=== PATIENT | female | born 1965 | race Caucasian/White ===

== ENCOUNTER 2018-07-26 07:46 | Day surgery (SDC) | payer OTHER ==
[~2018-07-26] VITALS: Ht 162.6 cm; Wt 70.4 kg
[~2018-07-26 07:46] MED LIST: ALBU90OI61 INH; B-122500 MCG SL; BENZ100A PO; BIOTIN5000 MC1 SL; Cheratussin AC118 ML PO; FLUO10 PO; IBUP800 PO; L-LYSINE500 MG PO; MULTI-VITAMIN-1 EACH PO; Nortriptyline H50 MG PO; Omega-31000 MG PO; Omeprazole20 M1 PO; QVAR REDIHALE10.6 G1 INH; Super B Comple1 EAC2 PO; VITAMIN D35000 UNIT PO; ZOLP10 PO
--- NOTE | 2018-07-26 08:46 | NUR ---
07/26/18 0846 Gerhard Cardoza TWO IV ATTEMPTS ON RIGHT ARM, BOTH UNSUCCESSFUL. THRID IV ATTEMPT ON LEFT HAND, SUCCESSFUL BY EDEN.
== END 2018-07-26 10:35 | disposition home or self-care (01) ==
LOC: ORSCSDS 07:46
PROVIDERS: Internal Medicine Gastroenterology
PROC: 0DB68ZX Excision of Stomach, Via Natural or Artificial Opening Endoscopic, Diagnostic (ICD-10-PCS; principal; 2018-07-26 09:30)
PROC: 0DB58ZX Excision of Esophagus, Via Natural or Artificial Opening Endoscopic, Diagnostic (ICD-10-PCS; principal; 2018-07-26 09:30)
PROC: 0D758ZZ Dilation of Esophagus, Via Natural or Artificial Opening Endoscopic (ICD-10-PCS; principal; 2018-07-26 09:30)
DX: R13.10 Dysphagia, unspecified (principal); K31.7 Polyp of stomach and duodenum; F41.9 Anxiety disorder, unspecified; E78.1 Pure hyperglyceridemia; Z79.899 Other long term (current) drug therapy
CPT/HCPCS: 88305; 88342; J0330; J1980; J2405; J7120

== ENCOUNTER 2021-01-01 23:10 | Emergency (ER) | payer OTHER ==
[~2021-01-01] VITALS: Ht 162.6 cm; Wt 63.5 kg
== END 2021-01-02 00:45 | disposition home or self-care (01) ==
LOC: ER 23:10
DX: B34.9 Viral infection, unspecified (principal); Z88.1 Allergy status to other antibiotic agents; Z88.5 Allergy status to narcotic agent; Z79.899 Other long term (current) drug therapy; Z20.822 Contact with and (suspected) exposure to COVID-19
CPT/HCPCS: 71046; 99283-25

== ENCOUNTER → 2025-05-23 | Outpatient (CLI) | payer OTHER | LOC: LAB 09:40 | DX: N39.0 Urinary tract infection, site not specified (principal) ==

== ENCOUNTER → 2025-05-30 | Outpatient (CLI) | payer OTHER | LOC: LAB SHORT 13:44 → LAB 13:44 | DX: N39.0 Urinary tract infection, site not specified (principal) | CPT/HCPCS: 87086 ==

== ENCOUNTER → 2025-07-02 | Outpatient (CLI) | payer OTHER ==
[2025-07-02 14:12] LABS: Source, Urine Clean Catch
[2025-07-02 14:39] LABS: Bilirubin, Urine Neg (Neg); Color, Urine Yellow (P-Yellow); Glucose Qualitative, Urine 4+ (Neg); Ketones, Urine Neg (Neg); Leukocyte Esterase, Urine 2+ (Neg); Protein, Urine 1+ (Neg); Specific Gravity, Urine 1.015 (1.003-1.022); Urobilinogen, Urine NORM (Normal)
[2025-07-02 14:47] LABS: Red Blood Cells, Urine 0-2 /hpf (0-2); White Blood Cells, Urine 0-2 /hpf (0-5)
== END | disposition home or self-care (01) ==
LOC: LAB SHORT 11:30 → LAB 11:30
PROVIDERS: Nurse Practitioner Family
DX: R82.90 Unspecified abnormal findings in urine (principal)
CPT/HCPCS: 81001; 87077; 87086; 87186